=== PATIENT | female | born 1970 | race Caucasian/White ===

== ENCOUNTER → 2023-10-11 | Outpatient (REF) | payer OTHER ==
[2023-10-11 17:34] LABS: THYROID STIMULATING HORMONE 2.751 uIU/ML (0.55-4.78); THYROXINE (T4) 4.6 UG/DL (4.5-10.9)
[2023-10-11 17:35] LABS: FREE T4 0.79 NG/DL (0.89-1.76)
[2023-10-11 18:04] LABS: FREE T3 2.9 PG/ML (2.3-4.2)
== END ==
LOC: M LABWUC 16:28
PROVIDERS: ATTEND Registered Nurse
DX: E07.89 Other specified disorders of thyroid (principal)

== ENCOUNTER → 2024-05-11 | Outpatient (CLI) | payer OTHER ==
[2024-05-11 16:05] LABS: HEMATOCRIT 39.9 % (36.0-47.0); HEMOGLOBIN 13.4 g/dl (12.0-15.5); MEAN CORPUSCULAR HEMOGLOBIN 32.1 pg (27.0-33.0); MEAN CORPUSCULAR HGB CONC 33.6 g/dl (32.0-36.5); MEAN CORPUSCULAR VOLUME 95.5 fl (80.0-96.0); PLATELET COUNT, AUTOMATED 320 10^3/uL (150-450); RED BLOOD COUNT 4.18 10^6/uL (4.00-5.40)
[2024-05-11 16:15] LABS: ALBUMIN 4.4 G/DL (3.2-5.2); ALKALINE PHOSPHATASE 98 U/L (46-116); ALT/SGPT 23 U/L (7.0-40); AST/SGOT 14 U/L (<34); BILIRUBIN,TOTAL 0.7 MG/DL (0.3-1.2); BLOOD UREA NITROGEN 17 MG/DL (9-23); CALCIUM LEVEL 10.2 MG/DL (8.5-10.1); CARBON DIOXIDE LEVEL 27 MMOL/L (20-31); CHLORIDE LEVEL 105 MMOL/L (98-107); CHOLESTEROL LEVEL 239 MG/DL (<200); CREATININE FOR GFR 0.79 MG/DL (0.55-1.30); GLOMERULAR FILTRATION RATE > 60.0 (>51); GLUCOSE, FASTING 96 MG/DL (60-100); POTASSIUM SERUM 4.2 MMOL/L (3.5-5.1); SODIUM LEVEL 139 MMOL/L (136-145); THYROXINE (T4) 5.6 UG/DL (4.5-10.9); TRIGLYCERIDES LEVEL 69 MG/DL (<150)
[2024-05-11 16:16] LABS: THYROID STIMULATING HORMONE 2.749 uIU/ML (0.55-4.78); TOTAL 25(OH) VITAMIN D 26.5 NG/ML (20.0-100.0)
[2024-05-11 16:17] LABS: FREE T4 1.13 NG/DL (0.89-1.76)
[2024-05-11 16:19] LABS: FREE T3 2.9 PG/ML (2.3-4.2)
[2024-05-11 22:51] LABS: CHOLESTEROL RISK RATIO 2.13 (<5); HDL CHOLESTEROL 112.1 MG/DL (>40); LDL CHOLESTEROL 113.1 MG/DL (<100); NON-HDL-C 126.9 MG/DL
== END ==
LOC: M PLALAB 13:26
PROVIDERS: ATTEND Registered Nurse
DX: I10 Essential (primary) hypertension (principal); E78.00 Pure hypercholesterolemia, unspecified; E55.9 Vitamin D deficiency, unspecified; E07.89 Other specified disorders of thyroid

== ENCOUNTER → 2024-08-10 | Outpatient (REF) | payer OTHER ==
[2024-08-10 18:27] LABS: ALBUMIN 4.1 G/DL (3.2-5.2); ALKALINE PHOSPHATASE 90 U/L (35-104); ALT/SGPT 29 U/L (7.0-40); AST/SGOT 20 U/L (<34); BILIRUBIN,TOTAL 0.6 MG/DL (0.3-1.2); BLOOD UREA NITROGEN 25 MG/DL (9-23); CALCIUM LEVEL 9.9 MG/DL (8.5-10.1); CARBON DIOXIDE LEVEL 27 MMOL/L (20-31); CHLORIDE LEVEL 105 MMOL/L (98-107); CHOLESTEROL LEVEL 186 MG/DL (<200); CHOLESTEROL RISK RATIO 1.89 (<5); CREATININE FOR GFR 0.95 MG/DL (0.55-1.30); GLOMERULAR FILTRATION RATE > 60.0 (>51); GLUCOSE, FASTING 87 MG/DL (60-100); HDL CHOLESTEROL 98.4 MG/DL (>40); NON-HDL-C 87.6 MG/DL; POTASSIUM SERUM 4.1 MMOL/L (3.5-5.1); SODIUM LEVEL 140 MMOL/L (136-145); TOTAL PROTEIN 7.9 G/DL (5.7-8.2); TRIGLYCERIDES LEVEL 78 MG/DL (<150)
[2024-08-10 18:34] LABS: THYROID STIMULATING HORMONE 2.461 uIU/ML (0.55-4.78)
[2024-08-10 18:35] LABS: FREE T4 1.16 NG/DL (0.89-1.76)
== END ==
LOC: M LABWUC 16:30
PROVIDERS: ATTEND Registered Nurse
DX: E83.52 Hypercalcemia (principal); E07.89 Other specified disorders of thyroid; E78.00 Pure hypercholesterolemia, unspecified; Z79.899 Other long term (current) drug therapy